=== PATIENT | female | born 1975 | race Caucasian/White ===

== ENCOUNTER 2022-06-16 14:15 | Outpatient (CLI) | payer MEDICARE, SELFPAY | END 2022-06-16 14:16 | disposition home or self-care (01) | LOC: INJ CL 14:17 | PROVIDERS: PCP Family Medicine; Visit Provider Family Medicine | DX: M17.11 Unilateral primary osteoarthritis, right knee (principal); M25.561 Pain in right knee | CPT/HCPCS: 64454 ==

== ENCOUNTER 2022-06-26 18:37 | Outpatient (REF) | payer MEDICARE, SELFPAY ==
[2022-06-26 19:49] LABS: SARS PCR* Negative SARS-CoV-2 (Negative)
== END 2022-06-26 18:38 | disposition home or self-care (01) ==
LOC: LAB 18:37
PROVIDERS: PCP Family Medicine; Visit Provider Family Medicine
DX: Z20.822 Contact with and (suspected) exposure to COVID-19 (principal)
CPT/HCPCS: 87635

== ENCOUNTER 2022-06-30 13:17 | Outpatient (CLI) | payer MEDICARE, SELFPAY | END 2022-06-30 13:18 | disposition home or self-care (01) | LOC: INJ CL 13:21 | PROVIDERS: PCP Family Medicine; Visit Provider Family Medicine | DX: M17.11 Unilateral primary osteoarthritis, right knee (principal); M25.561 Pain in right knee | CPT/HCPCS: 64624; J2250; J2405; J3010 ==

== ENCOUNTER 2024-11-23 14:23 | Outpatient (RCR) | payer MEDICARE, SELFPAY | END 2025-03-23 23:59 | disposition home or self-care (01) | PROVIDERS: PCP Family Medicine; Visit Provider Family Medicine | DX: M51.24 Other intervertebral disc displacement, thoracic region (principal); M54.14 Radiculopathy, thoracic region; Z51.89 Encounter for other specified aftercare | CPT/HCPCS: 97163; 97535 ==